=== PATIENT | female | born 1960 ===

== ENCOUNTER 2018-01-09 16:36 | Emergency (ER) | payer OTHER ==
[2018-01-09 16:36] VITALS: BMI 33.1
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
--- NOTE | 2018-01-09 19:22 | CT ---
EXAM: CT Right Lower Extremity Without Intravenous Contrast EXAM DATE/TIME: 01/09/2018 6:03 PM CLINICAL HISTORY: 57 years old, female; Injury or trauma; Fall; Initial encounter; Blunt trauma; Hip and knee; Right TECHNIQUE: Axial computed tomography images of the right lower extremity without intravenous contrast. All CT scans at this facility use at least one of these dose optimization techniques: automated exposure control; mA and/or kV adjustment per patient size (includes targeted exams where dose is matched to clinical indication); or iterative reconstruction. Coronal and sagittal reformatted images were created and reviewed. COMPARISON: There are no prior studies for comparison. FINDINGS: Bones/joints: No pelvic or sacral fractures are identified. There is anatomic position of the right femoral head. There are no hip fractures. There are small degenerative spurs at the greater trochanter. Femoral shaft is intact. Alignment at the knee is anatomic. There degenerative changes of the knee with joint space narrowing and osteophyte formation. There is no effusion in the suprapatella bursa. There are degenerative changes in the proximal tibia. Visualized portion of the tibia and fibula are intact. Soft tissues: There is no focal soft tissue swelling or bruising. Bladder: Bladder is partially distended. Reproductive: Uterus and adnexal structures are unremarkable. Other findings: There is a nonobstructed gas pattern in the visualized pelvis. IMPRESSION: No acute fracture; degenerative change greatest at the knee
[2018-01-09 19:39] VITALS: BP 128/78; PULSE 72; RESP 20; TEMP 98; O2SAT 98
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
--- NOTE | 2018-01-10 09:41 | RAD ---
PROCEDURE: Right Knee Radiographs. HISTORY: TRAUMA COMPARISON: Correlation made with prior radiographs left knee 12/26/2015. FINDINGS: BONES: Normal. No fracture. JOINTS: Tricompartmental degenerative osteoarthritis. Medial joint space narrowing with marginal medial and smaller lateral osteophyte formation. There also appears to be few tiny calcifications within the lateral aspect lateral joint space margin. Prominent posterior patellar osteophyte formation. Small anterior superior patella enthesophyte formation. . JOINT EFFUSION: Suspect trace joint effusion OTHER FINDINGS: None. IMPRESSION: No acute fractures. Tricompartmental degenerative osteoarthritis as described suspect trace joint effusion.
--- NOTE | 2018-01-10 09:42 | RAD ---
PROCEDURE: Radiographs of the Right Shoulder HISTORY: TRAUMA COMPARISON: Clear FINDINGS: BONES: Normal. No fracture. JOINTS: Mild degenerative osteoarthritis right acromioclavicular joint SOFT TISSUES: Normal. OTHER FINDINGS: None. IMPRESSION: No evidence of acute displaced fracture nor dislocation. Mild degenerative osteoarthritis right acromioclavicular joint.
== END 2018-01-09 19:44 | disposition home or self-care (01) ==
LOC: C.ER 16:36
DX: S00.03XA Contusion of scalp, initial encounter (principal); V13.4XXA Pedal cycle driver injured in collision with car, pick-up truck or van in traffic accident, initial encounter; Y93.55 Activity, bike riding; E78.00 Pure hypercholesterolemia, unspecified
CPT/HCPCS: 73030; 73562; 73610; 73700; 96372; 99284; J1885

== ENCOUNTER 2018-11-08 16:17 | Outpatient (CLI) | payer OTHER | END 2018-11-08 16:18 | disposition home or self-care (01) | LOC: C.MAMMO 16:17 | DX: Z12.31 Encounter for screening mammogram for malignant neoplasm of breast (principal) ==